=== PATIENT | male | born 1960 | race Caucasian/White ===

== ENCOUNTER 2017-08-29 14:31 | Emergency (ER) | payer BC, OTHER ==
[2017-08-29 14:37] VITALS: BP 150/102; PULSE 70; TEMP 98.3; BMI 28.3
--- NOTE | 2017-08-29 14:52 | PDOC ---
Rapid Medical Evaluation Chief Complaint: Eye Problem Time Seen by Provider: 08/29/17 14:39 Medical Evaluation: Allergies Allergy/AdvReac Type Severity Reaction Status Date / Time No Known Allergies Allergy Verified 08/29/17 14:37 Vital Signs Temp Pulse Resp BP Pulse Ox 98.3 F 70 18 150/102 98 08/29/17 14:34 08/29/17 14:34 08/29/17 14:34 08/29/17 14:34 08/29/17 14:34 08/29/17 14:39 Pt here with c/o: foreign body in right eye, + redness and burning Pt on exam: No visual foreign body, EOMI Pt ordered for : none Pt to proceed to the ED Discharge Disposition - Diagnosis Pain, eye, right - Referrals Referrals: Hugo Perdomo MD [Primary Care Provider] - - Patient Instructions - Post Discharge Activity
[2017-08-29] MEDS ORDERED: ERYTHROMYCIN 0.5% OPHTHALMIC OINTMENT 3.5 GM TUBE OS STA (16:30)
[2017-08-29] MEDS ORDERED: DIPHTH,PERTUSS(ACELL),TET 0.5 ML DISP.SYRIN IM ONE (16:32)
[2017-08-29] MEDS ORDERED: IBUPROFEN 600 MG TABLET (FP) PO ONE ×2 (16:32→16:34)
[2017-08-29] MEDS ORDERED: ERYTHROMYCIN 0.5% OPHTHALMIC OINTMENT 3.5 GM TUBE ONE (16:33)
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
== END 2017-08-29 16:41 | disposition home or self-care (01) ==
LOC: JERFT 14:31
PROC: 3E0234Z Introduction of Serum, Toxoid and Vaccine into Muscle, Percutaneous Approach (ICD-10-PCS; principal; 2017-08-29)
DX: S05.01XA Injury of conjunctiva and corneal abrasion without foreign body, right eye, initial encounter (principal); I10 Essential (primary) hypertension; Z91.14 Patient's other noncompliance with medication regimen; X58.XXXA Exposure to other specified factors, initial encounter; Y93.89 Activity, other specified; Y92.89 Other specified places as the place of occurrence of the external cause
CPT/HCPCS: 90715; 99281-25

== ENCOUNTER 2021-04-18 16:34 | Emergency (ER) | payer OTHER ==
[2021-04-18 17:14] VITALS: BP 122/71; PULSE 68; TEMP 98.1; BMI 28.3
[2021-04-18] MEDS ORDERED: KETOROLAC TROMETHAMINE 30 MG/1 ML VIAL IM ONE (18:55)
== END 2021-04-18 19:04 | disposition home or self-care (01) ==
LOC: JER 16:34 → JERFT 16:34
PROC: 3E0233Z Introduction of Anti-inflammatory into Muscle, Percutaneous Approach (ICD-10-PCS; principal; 2021-04-18)
DX: M54.12 Radiculopathy, cervical region (principal)
CPT/HCPCS: 99284-25

== ENCOUNTER 2022-10-04 06:51 | Emergency (ER) | payer OTHER ==
[2022-10-04 07:22] VITALS: BMI 34.7
[2022-10-04] MEDS ORDERED: SODIUM CHLORIDE 0.9% 500 ML INFUS.BAG IV ONE (08:13)
[2022-10-04 09:59] LABS: BASO % 0.6 % (0-2.0); HEMATOCRIT 45.7 % (35.4-49); HEMOGLOBIN 15.2 GM/dL (11.7-16.9); MCH 28.8 pg (25.7-33.7); MCHC 33.3 g/dl (32.0-35.9); MEAN CELL VOLUME 86.6 fl (80-96); MEAN PLT VOLUME 9.8 fl (7.5-11.1); MONO % 15.1 % (3.8-10.2); NEUT % 64.3 % (42.8-82.8); PLATELET COUNT 217 10^3/uL (134-434); RBC 5.28 M/mm3 (4.00-5.60); RDW 16.3 % (11.9-15.9); WHITE BLOOD COUNT 10.4 K/mm3 (4.0-10.0)
[2022-10-04 10:25] LABS: CALCIUM 9.1 mg/dL (8.5-10.1)
[2022-10-04 10:26] LABS: ALBUMIN 3.8 g/dl (3.4-5.0); MAGNESIUM 2.5 mg/dL (1.8-2.4)
[2022-10-04 10:30] LABS: CREATININE 1.1 mg/dL (0.55-1.3)
[2022-10-04 10:31] LABS: BILIRUBIN,TOTAL 0.5 mg/dL (0.2-1); TOT PROT 8.1 g/dl (6.4-8.2)
[2022-10-04 10:55] VITALS: BP 130/70; PULSE 70; RESP 20; TEMP 98.2
== END 2022-10-04 14:29 | disposition left against medical advice (07) ==
LOC: JER 06:51
DX: R55 Syncope and collapse (principal)
CPT/HCPCS: 0241U-QW; 36415; 71045-TC-FY; 80053; 82962; 83735; 84484; 85025; 93005; 93010; 99285-25

== ENCOUNTER 2023-08-14 03:37 | Day surgery (SDC) | payer OTHER ==
[2023-08-13 14:33] VITALS: BMI 33.8
[~2023-08-14 03:37] MED LIST: ACETAMINOPHEN 325 MG TABLET (FP) PO PRN; TRIAMCINOLONE ACET 40MG/1ML VIAL IJ ONE
[2023-08-14] MEDS ORDERED: OFLOXACIN 0.3% OPHTHALMIC SOLUTION 5 ML BOTTLE ONE (10:33)
[2023-08-14] MEDS: OFLOXACIN 0.3% OPHTHALMIC SOLUTION 5 ML BOTTLE OP SCH ×3 (10:45→10:55)
[2023-08-14] MEDS ORDERED: LIDOCAINE HCL 2% JELLY 11 ML TP ONE (12:07)
[2023-08-14] MEDS ORDERED: LIDOCAINE 1%/EPI 1:100000 (20 ML MULTI DOSE VIAL) ONE (12:08)
[2023-08-14] MEDS ORDERED: MIDAZOLAM HCL 2 MG/2 ML SINGLE DOSE VIAL ONE (12:42)
[2023-08-14] MEDS ORDERED: KETOROLAC TROMETHAMINE 30 MG/1 ML VIAL ONE (12:42)
[2023-08-14] MEDS ORDERED: TRIAMCINOLONE ACET 40MG/1ML VIAL IJ ONE ×2 (12:44)
[2023-08-14] MEDS ORDERED: POVIDONE-IODINE 5% OPHTHALMIC PREP 30 ML SOLUTION OS ONE ×2 (13:01)
[2023-08-14] MEDS ORDERED: BSS (NA/CA/MG/K) BALANCED SALT SOLUTION OPHTH SOLN 15 ML BOTTLE OS ONE (13:02)
[2023-08-14] MEDS ORDERED: LIDOCAINE 1%/EPI 1:100000 (50 ML MULTI DOSE VIAL) INF ONE ×2 (13:03)
[2023-08-14] MEDS ORDERED: FENTANYL CITRATE/PF 50 MCG/ML VIAL ONE (13:06)
[2023-08-14 13:16] VITALS: RESP 20
[2023-08-14 14:16] VITALS: BP 128/76; PULSE 78; TEMP 98
[2023-08-14] MEDS ORDERED: ACETAMINOPHEN 325 MG TABLET (FP) ONE (14:18)
[2023-08-14] MEDS ORDERED: ACETAMINOPHEN 325 MG TABLET (FP) PO ONE (14:22)
== END 2023-08-14 15:21 | disposition home or self-care (01) ==
LOC: JASU-SURG 03:37
PROVIDERS: ATTEND Ophthalmology
PROC: 08U107Z Supplement of Left Eye with Autologous Tissue Substitute, Open Approach (ICD-10-PCS; principal; 2023-08-14 12:00)
DX: H11.022 Central pterygium of left eye (principal)
CPT/HCPCS: 88304-TC; V2790